=== PATIENT | female | born 1980 | race Caucasian/White ===

== ENCOUNTER 2020-02-15 06:44 | Outpatient (CLI) | payer BC, OTHER ==
[2020-02-15 11:43] LABS: Hemoglobin 13.2 g/dL (12.0-16.0); Mean Corpuscular HGB CONC 33.8 g/dL (32.0-36.0); Mean Corpuscular Hemoglobin 34.2 pg (27.0-31.0); Mean Platelet Volume 8.1 fL (7.4-10.4); Platelet Count 228 thou/uL (130-400); RBC Distribution Width 12.5 % (11.5-14.5); Red Blood Cell (RBC) Count 3.87 mill/uL (4.20-5.40); White Blood Cell (WBC) Count 6.4 thou/uL (4.8-10.8)
[2020-02-15 11:58] LABS: Anion Gap 12 mmol/L (10-20); BUN (Urea Nitrogen) 15 mg/dL (7.0-18.7); Calc. Creatinine Clearance 0 mL/min (70-130); Calcium 9.7 mg/dL (7.8-10.44); Carbon Dioxide 27 mmol/L (22-29); Chloride 103 mmol/L (98-107); Estimated GFR-MDRD 63; Glucose 83 mg/dL (70-105); Potassium 3.6 mmol/L (3.5-5.1); Sodium 138 mmol/L (136-145)
--- NOTE | 2020-02-15 17:02 | EKG ---
Test Reason : Blood Pressure : / mmHG Vent. Rate : 052 BPM Atrial Rate : 052 BPM P-R Int : 134 ms QRS Dur : 082 ms QT Int : 444 ms P-R-T Axes : 012 051 039 degrees QTc Int : 412 ms Sinus bradycardia Otherwise normal ECG No previous ECGs available Confirmed by DR. Clifton MACARIO ([id number]) on 02/15/2020 5:01:29 PM Referred By: JAYDEN Confirmed By:DR. Clifton MACARIO
[2020-02-15 18:00] LABS: SARS-CoV-2 MS2 Positive; SARS-CoV-2 N Gene Negative; SARS-CoV-2 S Gene Negative; SARS-CoV-2 orf1ab Negative
== END 2020-02-15 06:45 | disposition home or self-care (01) ==
LOC: LABBT 06:44
PROVIDERS: ATTEND Neurological Surgery
DX: Z01.818 Encounter for other preprocedural examination (principal); Z11.59 Encounter for screening for other viral diseases; M54.16 Radiculopathy, lumbar region
CPT/HCPCS: 80048; 85027; 87635; 93005; 93010; U0002

== ENCOUNTER 2020-02-17 06:00 | Day surgery (SDC) | payer BC ==
[2020-02-15 10:49] VITALS: BMI 29.0
[2020-02-17] MEDS ORDERED: Fentanyl 100 MCG/2 ML VIAL ONE ×2 (06:54→09:02)
[2020-02-17] MEDS ORDERED: Midazolam HCl 2 mg/2 ml Vial ONE ×2 (06:54→07:04)
--- NOTE | 2020-02-17 08:23 | OP ---
DATE OF PROCEDURE: 02/17/2020 MANAGER PRIVACY: Jennifer Roldan PA-C PROCEDURE PERFORMED: Left L4-L5 microdiskectomy. DESCRIPTION OF PROCEDURE: The patient was brought to the operating room and intubated. She was rolled in a prone position on gel-filled chest rolls. An incision was made exposing L4-L5 on the left and the level was confirmed by x-ray. We performed left L4-L5 hemilaminectomy, removed the ligament, identified the left L5 nerve root, and beneath this was a herniated disk removed in several large fragments. A complete decompression of left L5 was achieved. The wound was then extensively irrigated and MAC hemostasis was secured. Vancomycin powder was applied and the wound was closed in anatomic layers. Job ID: [id number]
[2020-02-17] MEDS ORDERED: Rocuronium Bromide 10 MG/ML (10ML VIAL) ONE (08:29)
[2020-02-17] MEDS ORDERED: PROPOFOL 200 MG/20 ML VIAL ONE (08:29)
[2020-02-17] MEDS ORDERED: Glycopyrrolate 0.2 MG/ML 5 ML SYRINGE ONE (08:29)
[2020-02-17] MEDS ORDERED: Lidocaine 1% PF 5 ML VIAL ONE (08:29)
[2020-02-17] MEDS ORDERED: Dexamethasone 20 MG/5 ML VIAL ONE (08:29)
[2020-02-17] MEDS ORDERED: Ondansetron PF 4 MG/2 ML Vial ONE (08:29)
[2020-02-17] MEDS ORDERED: Ketorolac Tromethamine 30 MG/ML VIAL ONE (08:29)
[2020-02-17] MEDS ORDERED: Promethazine HCl 25 MG/ML VIAL ONE (08:39)
[2020-02-17] MEDS ORDERED: HYDROcodone/Acetaminophen 5/325 mg Tablet ONE (09:49)
[2020-02-17] MEDS ORDERED: tiZANidine HCl 4 MG TAB ONE (09:56)
== END 2020-02-17 11:55 | disposition home or self-care (01) ==
LOC: SDC 06:00
PROVIDERS: ATTEND Neurological Surgery
PROC: 0SB20ZZ Excision of Lumbar Vertebral Disc, Open Approach (ICD-10-PCS; principal; 2020-02-17)
DX: M51.16 Intervertebral disc disorders with radiculopathy, lumbar region (principal); I10 Essential (primary) hypertension; E03.9 Hypothyroidism, unspecified; E28.2 Polycystic ovarian syndrome; F32.9 Major depressive disorder, single episode, unspecified; Z79.84 Long term (current) use of oral hypoglycemic drugs; Z79.899 Other long term (current) drug therapy; Z87.442 Personal history of urinary calculi
CPT/HCPCS: 76000; J0690; J1100; J1885; J2001; J2250; J2405; J2550; J2704; J3010; J3370